=== PATIENT | male | born 1995 | race African-American/Black ===

== ENCOUNTER 2020-02-15 14:30 | Inpatient (IN) | payer MEDICAID ==
[~2020-02-15] VITALS: Ht 177.8 cm; Wt 67.6 kg
[2020-02-15] MEDS ORDERED: LORAZEPAM 2MG/ML CPJ ONE (14:44)
[2020-02-15] MEDS ORDERED: LEVETIRACETAM 1000MG/100ML 100 ML IV ONE (14:45)
[2020-02-15] MEDS ORDERED: LORAZEPAM 2MG/ML CPJ IV ONE ×2 (14:45→15:15)
[2020-02-15 15:59] LABS: CHLORIDE 111 mEq/L (98-107)
[2020-02-15 16:06] LABS: ETHANOL BLOOD < 10 mg/dL
[2020-02-15 16:07] LABS: BASOPHILS % 0.6 % (0.0-2.0); EOSINOPHILS % 4.3 % (0.0-5.0); HEMATOCRIT. 42.8 % (42.0-52.0); HEMOGLOBIN. 14.2 g/dL (14.0-18.0); LYMPHOCYTES % 50.5 % (20.0-50.0); MEAN CORPUSCULAR HEMOGLOBIN 28.6 pg (28.0-32.0); MEAN PLATELET VOLUME 8.7 fl (7.4-10.4); MONOCYTES % 7.1 % (2.0-8.0); NEUTROPHILS % 37.5 % (40.0-76.0); PLATELET 230 x1000/uL (130-400); RED BLOOD CELL COUNT 4.98 mill/uL (4.7-6.1); RED CELL DISTRIBUTION WIDTH 23.5 % (11.6-14.6)
[2020-02-15 16:33] LABS: CLARITY URINE CLEAR (CLEAR); COLOR URINE YELLOW (YELLOW); KETONES URINE NEGATIVE (NEGATIVE); LEUKOCYTE ESTERASE URINE NEGATIVE (NEGATIVE); NITRITE URINE NEGATIVE (NEGATIVE); OCCULT BLOOD URINE NEGATIVE (NEGATIVE); PROTEIN URINE NEGATIVE (NEGATIVE); SPECIFIC GRAVITY URINE 1.018 (1.005-1.030); UROBILINOGEN URINE 0.2 E.U./dL (0.2-1.0)
[2020-02-15 16:47] LABS: *AMPHETAMINES SCREEN URINE NEGATIVE (NEGATIVE)
[2020-02-15 16:48] LABS: *BARBITURATES SCREEN URINE NEGATIVE (NEGATIVE); *BENZODIAZEPINES SCREEN URINE PRESUMTIVE POSITIVE (NEGATIVE); *COCAINE SCREEN URINE NEGATIVE (NEGATIVE); CANNABINOID URINE SCREEN PRESUMTIVE POSITIVE (NEGATIVE); METHADONE URINE SCREEN NEGATIVE (NEGATIVE); OPIATES URINE SCREEN NEGATIVE (NEGATIVE); PHENCYCLIDINE URINE SCREEN NEGATIVE (NEGATIVE)
[2020-02-15 17:02] LABS: PLATELET ESTIMATE NORMAL
[2020-02-15] MEDS ORDERED: ACETAMINOPHEN 325MG TABLET PO PRN (22:00)
[2020-02-15] MEDS ORDERED: HYDROCODONE/ACETAMINOPHEN 5/325MG TABLET PO PRN (22:00)
[2020-02-15] MEDS ORDERED: DOCUSATE SODIUM 100MG CAPSULE PO PRN (22:00)
[2020-02-15] MEDS ORDERED: LORAZEPAM 2MG/ML CPJ IV PRN (22:00)
[2020-02-15] MEDS ORDERED: IPRATROPIUM/ALBUTEROL 0.5-3(2.5)MG/3ML NEB NEB PRN (22:00)
[2020-02-15] MEDS ORDERED: CLONIDINE 0.1MG TABLET PO PRN (22:00)
[2020-02-15] MEDS ORDERED: ONDANSETRON HCL 4MG/2ML INJ IV PRN (22:00)
[2020-02-15] MEDS ORDERED: MAGNESIUM/ALUMINUM HYDROXIDE/SIMETHICONE 30ML UDC PO PRN (22:00)
[2020-02-15 23:09] LABS: CHLORIDE 109 mEq/L (98-107)
[2020-02-15 23:19] LABS: CREATINE KINASE 335 IU/L (39-308)
[2020-02-15 23:21] LABS: CREATINE KINASE MB FRACTION < 1.0 ng/mL (0.5-3.6)
[2020-02-16 02:00] VITALS: BP 109/52
[2020-02-16 04:00] VITALS: BP 100/63
[2020-02-16] MEDS ORDERED: FERR-71 MT (05:01)
[2020-02-16 06:21] LABS: BASOPHILS % 0.4 % (0.0-2.0); EOSINOPHILS % 0.9 % (0.0-5.0); HEMATOCRIT. 42.4 % (42.0-52.0); HEMOGLOBIN. 14.1 g/dL (14.0-18.0); LYMPHOCYTES % 29.2 % (20.0-50.0); MEAN CORPUSCULAR HEMOGLOBIN 28.6 pg (28.0-32.0); MEAN PLATELET VOLUME 8.5 fl (7.4-10.4); NEUTROPHILS % 62.5 % (40.0-76.0); PLATELET 214 x1000/uL (130-400); RED BLOOD CELL COUNT 4.93 mill/uL (4.7-6.1); RED CELL DISTRIBUTION WIDTH 23.2 % (11.6-14.6)
[2020-02-16 06:34] LABS: LDL CHOLESTEROL 65 mg/dL (5-100)
[2020-02-16 06:35] LABS: CREATINE KINASE 342 IU/L (39-308)
[2020-02-16 06:37] LABS: HDL CHOLESTEROL 51 mg/dL (40-59)
[2020-02-16 06:38] LABS: CREATINE KINASE MB FRACTION < 1.0 ng/mL (0.5-3.6)
[2020-02-16 08:00] VITALS: BP 96/74
[2020-02-16] MEDS: LEVETIRACETAM 500MG/5ML CUP PO SCH ×2 (08:48→20:40)
[2020-02-16] MEDS: ENOXAPARIN 40MG/0.4ML SYR SUBCUT SCH (08:49)
[2020-02-16] MEDS: MULTIVITAMINS,THER W-MINERALS TABLET PO SCH (13:25)
[2020-02-16] MEDS: THIAMINE HCL 100MG TABLET PO SCH (13:26)
[2020-02-16] MEDS: FOLIC ACID 1MG TABLET PO SCH (13:26)
[2020-02-16 20:25] VITALS: BP 104/71
[2020-02-17] VITALS (7 sets, daily range): BP systolic 92–110; BP diastolic 48–67
[2020-02-17] MEDS: FOLIC ACID 1MG TABLET PO SCH (08:41)
[2020-02-17] MEDS: MULTIVITAMINS,THER W-MINERALS TABLET PO SCH (08:41)
[2020-02-17] MEDS: THIAMINE HCL 100MG TABLET PO SCH (08:41)
[2020-02-17] MEDS: ENOXAPARIN 40MG/0.4ML SYR SUBCUT SCH (08:42)
[2020-02-17] MEDS: LEVETIRACETAM 500MG/5ML CUP PO SCH ×2 (08:57→20:01)
[2020-02-18] VITALS: BP 101/54
[2020-02-18 04:00] VITALS: BP 101/57
[2020-02-18 06:20] LABS: BASOPHILS % 0.6 % (0.0-2.0); CHLORIDE 106 mEq/L (98-107); EOSINOPHILS % 3.2 % (0.0-5.0); HEMATOCRIT. 47.1 % (42.0-52.0); HEMOGLOBIN. 15.9 g/dL (14.0-18.0); LYMPHOCYTES % 47.3 % (20.0-50.0); MEAN CORPUSCULAR HEMOGLOBIN 29.2 pg (28.0-32.0); MEAN CORPUSCULAR VOLUME 86.5 fL (80.0-94.0); MEAN PLATELET VOLUME 8.6 fl (7.4-10.4); MONOCYTES % 12.9 % (2.0-8.0); PLATELET 220 x1000/uL (130-400); RED BLOOD CELL COUNT 5.45 mill/uL (4.7-6.1); RED CELL DISTRIBUTION WIDTH 22.4 % (11.6-14.6)
[2020-02-18 08:00] VITALS: BP 93/56
[2020-02-18] MEDS: LEVETIRACETAM 500MG/5ML CUP PO SCH (08:13)
[2020-02-18] MEDS: THIAMINE HCL 100MG TABLET PO SCH (08:13)
[2020-02-18] MEDS: MULTIVITAMINS,THER W-MINERALS TABLET PO SCH (08:13)
[2020-02-18] MEDS: ENOXAPARIN 40MG/0.4ML SYR SUBCUT SCH (08:13)
[2020-02-18] MEDS: FOLIC ACID 1MG TABLET PO SCH (08:13)
[2020-02-18] MEDS ORDERED: KEPP500 MT (11:09)
[2020-02-18 12:00] VITALS: BP 96/50
[2020-02-18 14:21] VITALS: BP 96/50
== END 2020-02-18 16:55 | disposition home or self-care (01) | DRG 53 ==
LOC: ER 14:30 → 6WST 20:18 → ENRESERV 02-16 01:07
PROVIDERS: ADMIT Internal Medicine; ATTEND Internal Medicine
DX: G40.909 Epilepsy, unspecified, not intractable, without status epilepticus (principal); E87.8 Other disorders of electrolyte and fluid balance, not elsewhere classified; G93.89 Other specified disorders of brain; F12.90 Cannabis use, unspecified, uncomplicated; W34.00XA Accidental discharge from unspecified firearms or gun, initial encounter
CPT/HCPCS: 36415; 70551; 80048; 80053; 80061; 80305; 80320; 81003; 82550; 82553; 83735; 84443; 84484; 85025; 96366; 96375; 96376; 99291; J1650; J1953; J2060; G0480

== ENCOUNTER 2020-04-04 09:46 | Emergency (ER) | payer MEDICAID ==
[~2020-04-04] VITALS: Ht 182.9 cm; Wt 90.7 kg
[~2020-04-04 09:46] MED LIST: FERR-71 MT; KEPP500 MT
[2020-04-04] MEDS ORDERED: LEVETIRACETAM 1000MG/100ML 100 ML IV ONE (10:00)
[2020-04-04 10:46] LABS: BASOPHILS % 0.9 % (0.0-2.0); EOSINOPHILS % 4.2 % (0.0-5.0); HEMATOCRIT. 45.9 % (42.0-52.0); HEMOGLOBIN. 15.4 g/dL (14.0-18.0); LYMPHOCYTES % 53.2 % (20.0-50.0); MEAN CORPUSCULAR HEMOGLOBIN 31.2 pg (28.0-32.0); MEAN CORPUSCULAR VOLUME 93.1 fL (80.0-94.0); MEAN PLATELET VOLUME 8.8 fl (7.4-10.4); MONOCYTES % 7.7 % (2.0-8.0); PLATELET 247 x1000/uL (130-400); RED BLOOD CELL COUNT 4.92 mill/uL (4.7-6.1); RED CELL DISTRIBUTION WIDTH 15.1 % (11.6-14.6)
[2020-04-04 10:58] LABS: CHLORIDE 110 mEq/L (98-107)
[2020-04-04 11:03] LABS: ETHANOL BLOOD < 10 mg/dL
[2020-04-04 11:14] LABS: CARBAMAZEPINE < 0.5 ug/mL (4-12); PHENOBARBITAL < 2.1 ug/mL (15.0-40.0); VALPROIC ACID < 3.0 ug/mL (50-100)
[2020-04-04] MEDS ORDERED: ONDANSETRON HCL 4MG/2ML INJ IV ONE (12:00)
[2020-04-04 12:08] VITALS: BP 136/69
== END 2020-04-04 12:48 | disposition home or self-care (01) ==
LOC: ER 09:46
DX: G40.909 Epilepsy, unspecified, not intractable, without status epilepticus (principal); Z20.828 Contact with and (suspected) exposure to other viral communicable diseases
CPT/HCPCS: 36415; 80053; 80156; 80165; 80184; 80185; 80320; 85025; 87635; 96365; 96375; 99284; J1953; J2405; G0480